=== PATIENT | female | born 1950 | race Caucasian/White ===

== ENCOUNTER 2016-12-25 08:49 | Day surgery (SDC) | payer OTHER ==
[2016-12-19 14:40] VITALS: BMI 17.2
[2016-12-25] MEDS ORDERED: MIDAZOLAM HCL 2 MG/2 ML SINGLE DOSE VIAL ONE (10:20)
[2016-12-25] MEDS ORDERED: MEPIVACAINE HCL/PF 15 MG/ML ML ONE (10:20)
[2016-12-25] MEDS ORDERED: ROPIVACAINE HCL 0.5% 30ML VIAL ONE (10:20)
[2016-12-25] MEDS ORDERED: LIDOCAINE HCL/PF 2% SDV 5ML VIAL ONE (12:45)
[2016-12-25] MEDS ORDERED: PROPOFOL 20 ML ONE (12:46)
[2016-12-25] MEDS ORDERED: SUCCINYLCHOLINE CHLORIDE 200 MG/10 ML VIAL ONE (12:46)
[2016-12-25] MEDS ORDERED: ePHEDrine SULFATE 50 MG/1 ML AMPULE ONE (13:18)
[2016-12-25] MEDS ORDERED: ONDANSETRON 4 MG/2 ML VIAL ONE ×2 (14:36→15:15)
[2016-12-25] MEDS ORDERED: PROMETHAZINE HCL 25 MG/1 ML VIAL IVPUSH PRN (16:02)
[2016-12-25] MEDS ORDERED: oxyCODONE HCL 5 MG TABLET PO PRN (16:02)
[2016-12-25] MEDS ORDERED: ONDANSETRON 4 MG/2 ML VIAL IVPUSH PRN (16:02)
[2016-12-25 17:46] VITALS: BP 126/77; PULSE 76; TEMP 99
--- NOTE | 2016-12-26 10:51 | OP ---
DATE OF OPERATION: 12/25/2016 PREOPERATIVE DIAGNOSIS: Impingement to the right shoulder with tearing of the rotator cuff. POSTOPERATIVE DIAGNOSIS: Impingement from the acromion and coracoclavicular ligament adhesions within the joint, impingement for the distal clavicle including the articular portion, hypertrophic synovium, inflamed bursal tissue, rotator cuff tear, glenoid labral tear. PROCEDURE PERFORMED: Shoulder decompression of subacromial space, partial acromioplasty with release and resection of coracoacromial ligament, lysis and resection of adhesions, distal claviculectomy including the distal articular service, proximal claviculectomy with extensive debridement, debridement of inflamed bursal tissue, debridement of rotator cuff, partial glenoid labral resection. SURGEON: David Rios MD DIRECTOR OF REVENUE CYCLE MANAGEMENT: Steve Dozier. ANESTHESIOLOGIST: Dr. Perez. ANESTHESIA: General anesthesia was performed. PROCEDURE: Consisted of the patient being brought into the operating room and gently transferred from the stretcher to the OR table with all bony prominences well padded. Right shoulder was prepared and draped in sterile fashion. The patient was given intravenous antibiotics and copious irrigation throughout the procedure to minimize the risk for infection. A complete lrxn-[id number]-rsl-alternative discussion was conducted with the patient, which was inclusive of, but were not limited to, infection, bleeding, , paralysis, increased pain, and need for repeat surgery. The patient asked questions, understood the procedure, and desired to proceed with surgical treatment. An appropriate time-out was conducted indicating, but was not limited to, the site of surgery, surgeon, anesthesiologist, proper location of surgery, and type of surgery. Following sterile preparation and draping of the patient, the patient had been placed in the right side up lateral decubitus position with all bony prominences well padded. A pillow was placed below the legs and between the legs to protect the peroneal nerve in the knees. An axillary roll was placed to protect the lower shoulder. A soft collar was applied to the cervical spine to protect the cervical spine. Great care was taken to protect the neurovascular structures and facial features throughout the procedures. Following sterile preparation and draping the patient, anterior posterolateral portal was used to introduce the arthroscope and arthroscopic instruments. The glenohumeral joint was evaluated. There was noted to be adhesions within the joint preventing adhesions within the joint, and these were lysed and resected anterior and posterior recess of this body or plica. There was noted to be hypertrophic synovium, and extensive partial synovectomy was performed. There was noted to be tearing of the glenoid labrum and partial glenoid labral resection was performed. Rotator cuff on the articular side was found to have a tear, which was probed and found to be partial thickness, and this was debrided using shaver and radiofrequency wand. Extensive debridement was also performed. The shoulder joint was then copiously irrigated, and following debridement of the partial-thickness rotator cuff tear, our attention was turned to the subacromial space. There was noted to be inflamed bursal tissue. An extensive partial bursectomy was performed. Rotator cuff on the bursal side was intact. The outer edge of acromion was noted to creating impingement. This was debrided, and high-speed miguel and shaver used to resect the wedge of bone thick anteriorly and then posteriorly. There was noted to be impingement formed at the coracoacromial ligament. This was released and resected. Lateral clavicle was also creating impingement including articular portion. This was debrided, and a high-speed miguel and shaver was used to resect the lateral clavicle including the articular portion. The shoulder joint was then just copiously irrigated. The wounds were closed with 4-0 undyed Vicryl. We applied Steri-Strips, Xeroform, 4x4s, Elastoplast, and shoulder immobilizer. The patient was examined, awoken from anesthesia, and transferred from the operating room to the recovery room in satisfactory condition. There were no intraoperative complications. Nicholas [id number]
--- NOTE | 2016-12-27 15:41 | PATH ---
Surgical Pathology Report Patient Name: NATALI MENDOZA [facility]. Rec. #: [id number] /Age/Gender: 1950 (Age: 66) / F Account: [id number] Location: [facility] AMBULATORY Taken: 12/25/2016 Received: 12/25/2016 Reported: 12/27/2016 Physicians: David Rios M.D. Specimen(s) Received RIGHT SHOULDER SHAVINGS Clinical History Rotator cuff tear Final Diagnosis SHOULDER, RIGHT, ARTHROSCOPIC SHAVINGS: SCANT FIBROCOLLAGENOUS TISSUE. Electronically Signed Asiya Arteaga M.D. Gross Description Received in formalin labeled "right shoulder shavings," is a 0.3 cm in greatest dimension ellis-white soft tissue fragment. The specimen is submitted in toto in one cassette. 12/26/201612/26/2016
== END 2016-12-25 17:00 | disposition home or self-care (01) ==
LOC: FASU 08:49
PROVIDERS: ATTEND Orthopaedic Surgery
PROC: 0RNJ4ZZ Release Right Shoulder Joint, Percutaneous Endoscopic Approach (ICD-10-PCS; 2016-12-25)
PROC: 0PB94ZZ Excision of Right Clavicle, Percutaneous Endoscopic Approach (ICD-10-PCS; 2016-12-25)
PROC: 0RBJ4ZZ Excision of Right Shoulder Joint, Percutaneous Endoscopic Approach (ICD-10-PCS; 2016-12-25)
PROC: 0RNJ4ZZ Release Right Shoulder Joint, Percutaneous Endoscopic Approach (ICD-10-PCS; 2016-12-25)
PROC: 0LB14ZZ Excision of Right Shoulder Tendon, Percutaneous Endoscopic Approach (ICD-10-PCS; principal; 2016-12-25 13:15)
DX: M75.101 Unspecified rotator cuff tear or rupture of right shoulder, not specified as traumatic (principal); M75.41 Impingement syndrome of right shoulder; M75.01 Adhesive capsulitis of right shoulder; M67.211 Synovial hypertrophy, not elsewhere classified, right shoulder; M24.111 Other articular cartilage disorders, right shoulder
CPT/HCPCS: 88304-TC; 94760